=== PATIENT | male | born 1955 | race Caucasian/White ===

== ENCOUNTER 2018-11-16 08:29 | Inpatient (IN) ==
[2018-11-16] MEDS ORDERED: GLUCAGON 1 MG VIAL IM PRN (08:33)
[2018-11-16] MEDS ORDERED: DEXTROSE 50% 25 GM/50 ML VIAL IV PRN (08:33)
[2018-11-16] MEDS ORDERED: SODIUM CHLORIDE 0.9% 1,000 ML IV SCH (09:00)
[2018-11-16 14:36] LABS: ABG Base Excess 2.9 MMOL/L (-2.5-2.5); ABG HCO3 25.3 MMOL/L (20-26); ABG Oxygen Saturation 92.9 % (95-100); ABG PCO2 32.5 MM HG (35-48); ABG PH 7.509 (7.35-7.45); ABG TCO2 26.3 MMOL/L (23-27); Allen Test Positive
[2018-11-16 15:49] LABS: Basophils # 0.1 10*3/uL (0.0-0.2); Basophils % 0.7 % (0.0-0.8); Eosinophils # 0.1 10*3/uL (0.0-0.87); Eosinophils % 1.1 % (0.00-10.9); Hematocrit 45.4 VOL% (42.0-52.0); Hemoglobin 14.7 GM/DL (14.0-18.0); Immature Granulocytes % 0.6 %; Immature Granulocytes Absolute 0.07 #; Lymphocytes # 2.3 10*3/uL (1.4-4.0); Lymphocytes % 19.2 % (21.2-54.2); Mean Corpuscular HGB Conc 32.4 GM/DL (32-36); Mean Corpuscular Volume 92.5 FL (87-102); Mean Platelet Volume 12.9 FL (9.6-12.0); Neutrophils % 69.4 % (38.7-73.9); Platelet Count 177 T/CUMM (130-400); Red Blood Count 4.91 MC/CUMM (3.8-5.5); Red Cell Distribution Width 15.5 % (9.3-17.3); White Blood Count 12.1 T/CUMM (4-12)
[2018-11-16] MEDS ORDERED: NITROGLYCERIN DRIP 50 MG/250 ML BOTTLE IV PRN (15:54)
[2018-11-16] MEDS: ASPIRIN CHEW 81 MG TABLET PO SCH (15:57)
[2018-11-16] MEDS ORDERED: HEPARIN DRIP 25,000 UNITS/500 ML PREMIX IV SCH (16:00)
[2018-11-16 16:10] LABS: Albumin 3.1 G/DL (3.4-5.0); Bilirubin,Total 0.9 MG/DL (0.2-1.0); Calcium 8.9 MG/DL (8.5-10.1); Osmolality,Calculated 277.4 MOS/KG (273-304); Total Protein 6.2 G/DL (6.4-8.3)
[2018-11-16] MEDS: SILDENAFIL 20 MG TABLET PO SCH ×2 (16:11→21:28)
[2018-11-16] MEDS: clonazePAM 0.5 MG TABLET PO SCH ×2 (16:11→21:28)
[2018-11-16] MEDS: ATORVASTATIN 20 MG TABLET PO SCH (16:11)
[2018-11-16] MEDS: CHLORHEXIDINE 0.12% ORAL RINSE 60 ML BOTTLE SWISH/SPIT SCH ×2 (16:12→21:29)
[2018-11-16] MEDS: CHLORHEXIDINE 4% SOLN 118 ML BOTTLE TOP SCH ×2 (19:12→21:30)
[2018-11-16] MEDS ORDERED: VERAPAMIL SR 240 MG TABLET PO SCH (21:00)
[2018-11-17] MEDS: CHLORHEXIDINE 4% SOLN 118 ML BOTTLE TOP SCH ×2 (04:30→11:58)
[2018-11-17] MEDS: CHLORHEXIDINE 0.12% ORAL RINSE 60 ML BOTTLE SWISH/SPIT SCH ×3 (04:58→20:34)
[2018-11-17] MEDS ORDERED: PAPAVERINE 60 MG/2 ML VIAL ONE (05:09)
[2018-11-17] MEDS ORDERED: VANCOMYCIN 1,000 MG VIAL ONE (05:10)
[2018-11-17] MEDS ORDERED: CEFUROXIME INJ 1,500 MG in SYRINGE 1 EACH IV ONE (06:00)
[2018-11-17] MEDS ORDERED: HEPARIN/NACL 0.9% 2 UNITS/ML 500 ML IV ONE ×2 (06:20→11:20)
[2018-11-17] MEDS ORDERED: PHENYLEPHRINE DRIP 20 MG/250 ML PREMIX IV ONE (06:20)
[2018-11-17] MEDS ORDERED: MIDAZOLAM 10 MG/2 ML VIAL ONE (06:20)
[2018-11-17] MEDS ORDERED: SUFentanil 250 MCG/5 ML AMP ONE (06:20)
[2018-11-17] MEDS ORDERED: AMINOCAPROIC ACID 5,000 MG/20 ML VIAL ONE (06:21)
[2018-11-17] MEDS ORDERED: NITROGLYCERIN DRIP 50 MG/250 ML BOTTLE IV ONE (06:21)
[2018-11-17] MEDS ORDERED: LEVOTHYROXINE 112 MCG TABLET PO SCH (06:30)
[2018-11-17 07:44] LABS: ABG Base Excess 1.4 MMOL/L (-2.5-2.5); ABG HCO3 25.7 MMOL/L (20-26); ABG Oxygen Saturation 99.1 % (95-100); ABG PH 7.412 (7.35-7.45); ABG TCO2 22.6 MMOL/L (23-27); Glucose Heart Surgery 120 MG/DL (74-106); Hematocrit Heart Surgery 42.4 PERCENT (42-52); Hemoglobin Heart Surgery 13.8 G/DL (14.0-18.0); Ionized Calcium Arterial 1.27 MMOL/L (1.21-1.46); PH Patient Temp Arterial 7.412; Patient Temperature 37 CELCIUS; Potassium Heart/CVR 2.7 MMOL/L (3.5-5.1); Sodium Heart/CVR 139 MMOL/L (135-145)
[2018-11-17 08:31] LABS: Apearance,Urine CLEAR (Clear); Bilirubin,Urine Negative (Negative); Blood, Urine Negative (Negative); Glucose,Urine (UA) Negative (Negative); Ketones,Urine Negative (Negative); Nitrite,Urine Negative (Negative); Protein,Urine Negative; RBC,Urine 2 /HPF (0-4); Urine Color Yellow (Yellow); Urine Specific Gravity 1.015 (1.001-1.035); Urine Urobilinogen < 2.0 EU/DL (0.2-1.0); WBC,Urine 2 /HPF (0-6)
[2018-11-17] MEDS ORDERED: PHENYLEPHRINE DRIP 40 MG/250 ML PREMIX IV ONE (09:18)
[2018-11-17 09:21] LABS: Hematocrit Heart Surgery 30.8 PERCENT (42-52); PCO2 Patient Temp Venous 35.7 MM HG; PH Patient Temp Venous 7.45; Potassium Heart/CVR 3.1 MMOL/L (3.5-5.1); VBG Base Excess 1.1 MEQ/L (0-4); VBG HCO3 25.2 MEQ/L (24-28); VBG PCO2 41.2 MMHG (41-51); VBG PH 7.406; VBG PO2 49.1 MMHG (17-40)
[2018-11-17 09:49] LABS: Hematocrit Heart Surgery 32.1 PERCENT (42-52); Hemoglobin Heart Surgery 10.4 G/DL (14.0-18.0); PCO2 Patient Temp Venous 32.7 MM HG; PH Patient Temp Venous 7.479; PO2 Patient Temp Venous 40.2 MM HG; VBG Base Excess 1.3 MEQ/L (0-4); VBG HCO3 25.3 MEQ/L (24-28); VBG Oxygen Saturation 83.3 %; VBG PCO2 37.8 MMHG (41-51); VBG PH 7.435; VBG PO2 49.4 MMHG (17-40)
[2018-11-17 10:32] LABS: ABG Base Excess 0.4 MMOL/L (-2.5-2.5); ABG HCO3 24.8 MMOL/L (20-26); ABG Oxygen Saturation 99.6 % (95-100); ABG PCO2 35.7 MM HG (35-48); ABG PH 7.439 (7.35-7.45); ABG TCO2 21.9 MMOL/L (23-27); Glucose Heart Surgery 188 MG/DL (74-106); Hematocrit Heart Surgery 31.8 PERCENT (42-52); Hemoglobin Heart Surgery 10.3 G/DL (14.0-18.0); Ionized Calcium Arterial 1.28 MMOL/L (1.21-1.46); PCO2 Patient Temp Arterial 35.7 MMHG; PH Patient Temp Arterial 7.439; Patient Temperature 37 CELCIUS; Potassium Heart/CVR 3.2 MMOL/L (3.5-5.1); Sodium Heart/CVR 134 MMOL/L (135-145)
[2018-11-17] MEDS ORDERED: MANNITOL 100 GM/500 ML BAG IV ONE (10:35)
[2018-11-17] MEDS ORDERED: FUROSEMIDE 20 MG/2 ML VIAL ONE (10:36)
[2018-11-17] MEDS ORDERED: methylPREDNISolone SOD SUC 1,000 MG/8 ML VIAL ONE (10:36)
[2018-11-17] MEDS ORDERED: ALBUMIN 25% 25 GM/100 ML VIAL IV ONE (10:36)
[2018-11-17] MEDS ORDERED: SODIUM BICARBONATE 50 MEQ/50 ML VIAL IV ONE (10:36)
[2018-11-17] MEDS ORDERED: PROTAMINE SULFATE 250 MG/25 ML VIAL IV ONE (10:36)
[2018-11-17] MEDS ORDERED: DEXTROSE 5% KCL 20 MEQ 20 MEQ/1,000 ML BAG IV ONE (10:36)
[2018-11-17] MEDS ORDERED: HEPARIN 10,000 UNIT/10 ML VIAL ONE (10:36)
[2018-11-17] MEDS ORDERED: PROTAMINE SULFATE 50 MG/5 ML VIAL IV ONE (10:36)
[2018-11-17] MEDS ORDERED: MAGNESIUM SULFATE 5 GM/10 ML VIAL IV ONE (10:36)
[2018-11-17] MEDS ORDERED: POTASSIUM CHLORIDE 20 MEQ/10 ML VIAL ONE (10:37)
[2018-11-17] MEDS: SODIUM CHLORIDE 0.45% 1,000 ML IV SCH (11:20)
[2018-11-17] MEDS: LACTATED RINGERS 1,000 ML IV PRN ×2 (11:25→12:30)
[2018-11-17] MEDS ORDERED: MIDAZOLAM 2 MG/2 ML VIAL IV PRN (11:43)
[2018-11-17] MEDS ORDERED: NITROPRUSSIDE 100 MG in DEXTROSE 5% 250 ML IV PRN (11:43)
[2018-11-17] MEDS ORDERED: ACETAMINOPHEN 650 MG SUPP RECTAL PRN (11:43)
[2018-11-17] MEDS ORDERED: MAGNESIUM SULF RIDER 4 GM in PREMIX 1 EACH IV PRN (11:43)
[2018-11-17] MEDS ORDERED: CALCIUM CHLORIDE 1,000 MG/10 ML SYRINGE IV PRN (11:43)
[2018-11-17] MEDS ORDERED: INSULIN REGULAR 100 UNIT/ML IV PRN (11:43)
[2018-11-17] MEDS ORDERED: MAGNESIUM SULF RIDER 2 GM in PREMIX 1 EACH IV PRN (11:43)
[2018-11-17] MEDS ORDERED: VECURONIUM 10 MG VIAL IV PRN ×2 (11:43)
[2018-11-17] MEDS ORDERED: MIDAZOLAM 10 MG/2 ML VIAL IV PRN (11:43)
[2018-11-17] MEDS ORDERED: ONDANSETRON 4 MG/2 ML VIAL IV PRN (11:43)
[2018-11-17] MEDS ORDERED: INSULIN REGULAR 100 UNIT/ML IV ONE (11:43)
[2018-11-17] MEDS ORDERED: LACTATED RINGERS 250 ML IV PRN (11:43)
[2018-11-17] MEDS ORDERED: DEXTROSE 50% 25 GM/50 ML VIAL IV PRN ×2 (11:43)
[2018-11-17] MEDS ORDERED: ETOMIDATE 40 MG/20 ML VIAL IV ONE (11:45)
[2018-11-17] MEDS ORDERED: ePHEDrine 50 MG/ML AMP ONE (11:45)
[2018-11-17] MEDS ORDERED: SEVOFLURANE 1 UNIT/15 MINUTE INH ONE (11:45)
[2018-11-17] MEDS ORDERED: MINERAL OIL/PETROLATUM OPH OINT 3.5 GM TUBE ONE (11:45)
[2018-11-17] MEDS ORDERED: GLYCOPYRROLATE 0.4 MG/2 ML VIAL ONE (11:45)
[2018-11-17] MEDS ORDERED: SODIUM CHLORIDE 0.9% 250 ML IV ONE (11:46)
[2018-11-17] MEDS ORDERED: PHENYLEPHRINE 1 MG/10 ML SYRINGE IV ONE (11:46)
[2018-11-17] MEDS ORDERED: ROCURONIUM 100 MG/10 ML VIAL IV ONE (11:46)
[2018-11-17] MEDS ORDERED: SODIUM CHLORIDE 0.9% 1,000 ML IV ONE (11:46)
[2018-11-17] MEDS ORDERED: CALCIUM CHLORIDE 1,000 MG/10 ML VIAL IV ONE (11:46)
[2018-11-17 11:57] LABS: ABG Base Excess 0.7 MMOL/L (-2.5-2.5); ABG Oxygen Saturation 95.9 % (95-100); ABG PCO2 42.9 MM HG (35-48); ABG PH 7.388 (7.35-7.45); ABG TCO2 23.3 MMOL/L (23-27); Glucose Heart Surgery 152 MG/DL (74-106); Hematocrit Heart Surgery 34.1 PERCENT (42-52); Hemoglobin Heart Surgery 11.1 G/DL (14.0-18.0); Potassium Heart/CVR 3.2 MMOL/L (3.5-5.1)
[2018-11-17 11:58] LABS: Basophils % 0.3 % (0.0-0.8); Eosinophils # 0.1 10*3/uL (0.0-0.87); Eosinophils % 0.8 % (0.00-10.9); Hematocrit 32.4 VOL% (42.0-52.0); Hemoglobin 10.6 GM/DL (14.0-18.0); Immature Granulocytes Absolute 0.12 #; Lymphocytes # 1.1 10*3/uL (1.4-4.0); Lymphocytes % 8.6 % (21.2-54.2); Mean Corpuscular HGB Conc 32.7 GM/DL (32-36); Mean Corpuscular Volume 93.1 FL (87-102); Mean Platelet Volume 11.4 FL (9.6-12.0); Monocytes % 4.8 % (1.7-12.7); Neutrophils % 84.5 % (38.7-73.9); Platelet Count 161 T/CUMM (130-400); Red Blood Count 3.48 MC/CUMM (3.8-5.5); Red Cell Distribution Width 15.3 % (9.3-17.3); White Blood Count 12.3 T/CUMM (4-12)
[2018-11-17] MEDS ORDERED: SODIUM CHLORIDE 0.45% 1,000 ML IV SCH (12:00)
[2018-11-17] MEDS: POTASSIUM CHLORIDE RIDER 20 MEQ in PREMIX 1 EACH IV PRN ×3 (12:06→14:18)
[2018-11-17 12:09] LABS: INR 1.1; PT Patient Result 11.7 SECS; Partial Thromboplastin Time 27.3 SECS (0-40)
[2018-11-17 12:21] LABS: CKMB % 4.2 %
[2018-11-17 12:25] LABS: Albumin 3.1 G/DL (3.4-5.0); Bilirubin,Total 1.4 MG/DL (0.2-1.0); Calcium 9.8 MG/DL (8.5-10.1); Osmolality,Calculated 283.3 MOS/KG (273-304); Total Protein 5.6 G/DL (6.4-8.3)
[2018-11-17 12:27] LABS: Troponin I 7.76 NG/ML (0.00-0.045)
[2018-11-17] MEDS ORDERED: PROPOFOL 1,000 MG/100 ML BOTTLE IV SCH (13:00)
[2018-11-17] MEDS: INSULIN REGULAR DRIP 100 ML IV SCH (13:19)
[2018-11-17] MEDS: DEXMEDETOMIDINE 200 MCG in SODIUM CHLORIDE 0.9% 48 ML IV PRN ×2 (13:22→19:07)
[2018-11-17] MEDS: SILDENAFIL 20 MG TABLET PO SCH (13:34)
[2018-11-17] MEDS: ASPIRIN CHEW 81 MG TABLET PO SCH (13:35)
[2018-11-17] MEDS: clonazePAM 0.5 MG TABLET PO SCH (13:35)
[2018-11-17] MEDS: ATORVASTATIN 20 MG TABLET PO SCH (13:35)
[2018-11-17 14:04] LABS: ABG Base Excess 0.9 MMOL/L (-2.5-2.5); ABG HCO3 25.2 MMOL/L (20-26); ABG Oxygen Saturation 97.1 % (95-100); ABG PCO2 42.2 MM HG (35-48); ABG PH 7.396 (7.35-7.45); ABG PO2 96.5 MM HG (80-95); ABG TCO2 23.1 MMOL/L (23-27); Glucose Heart Surgery 138 MG/DL (74-106); Hematocrit Heart Surgery 35.8 PERCENT (42-52); Hemoglobin Heart Surgery 11.6 G/DL (14.0-18.0); Potassium Heart/CVR 3.7 MMOL/L (3.5-5.1)
[2018-11-17] MEDS: POTASSIUM CHLORIDE RIDER 10 MEQ in PREMIX 1 EACH IV PRN (15:04)
[2018-11-17] MEDS: PHENYLEPHRINE DRIP 40 MG/250 ML PREMIX IV PRN (16:51)
[2018-11-17 18:11] LABS: ABG Base Excess 0.6 MMOL/L (-2.5-2.5); ABG Oxygen Saturation 97.6 % (95-100); ABG PCO2 47.7 MM HG (35-48); ABG PH 7.356 (7.35-7.45); ABG TCO2 23.8 MMOL/L (23-27); Glucose Heart Surgery 161 MG/DL (74-106)
[2018-11-17] MEDS: MORPHINE 10 MG/1 ML VIAL IV PRN (18:53)
[2018-11-17] MEDS: PROPOFOL 1,000 MG/100 ML BOTTLE IV PRN (19:36)
[2018-11-17] MEDS: CEFUROXIME INJ 1,500 MG in SYRINGE 1 EACH IV SCH (19:47)
[2018-11-17 20:10] LABS: CKMB % 4.3 %
[2018-11-17 20:12] LABS: Troponin I 10.2 NG/ML (0.00-0.045)
[2018-11-17 21:07] LABS: ABG Base Excess 0.3 MMOL/L (-2.5-2.5); ABG HCO3 25.9 MMOL/L (20-26); ABG Oxygen Saturation 97.6 % (95-100); ABG PCO2 45.8 MM HG (35-48); ABG PH 7.371 (7.35-7.45); ABG PO2 118.8 MM HG (80-95); ABG TCO2 27.3 MMOL/L (23-27); Glucose Heart Surgery 156 MG/DL (74-106); Hemoglobin Heart Surgery 12.3 G/DL (14.0-18.0)
[2018-11-18] MEDS ORDERED: FUROSEMIDE 40 MG/4 ML VIAL IV ONE (00:13)
[2018-11-18] MEDS: MORPHINE 10 MG/1 ML VIAL IV PRN ×2 (00:34→04:28)
[2018-11-18] MEDS: PROPOFOL 1,000 MG/100 ML BOTTLE IV PRN (01:41)
[2018-11-18] MEDS: ALBUMIN 5% 12.5 GM in PREMIX 1 EACH IV PRN ×3 (02:10→09:35)
[2018-11-18 03:44] LABS: ABG Base Excess 1.2 MMOL/L (-2.5-2.5); ABG HCO3 25.4 MMOL/L (20-26); ABG Oxygen Saturation 97.5 % (95-100); ABG PCO2 47.5 MM HG (35-48); ABG PH 7.364 (7.35-7.45); ABG TCO2 24.3 MMOL/L (23-27); Glucose Heart Surgery 146 MG/DL (74-106); Hematocrit Heart Surgery 35.3 PERCENT (42-52); Hemoglobin Heart Surgery 11.5 G/DL (14.0-18.0); Potassium Heart/CVR 3.7 MMOL/L (3.5-5.1)
[2018-11-18 04:08] LABS: Basophils % 0.1 % (0.0-0.8); Hematocrit 33.7 VOL% (42.0-52.0); Hemoglobin 10.9 GM/DL (14.0-18.0); Immature Granulocytes % 0.5 %; Immature Granulocytes Absolute 0.09 #; Lymphocytes # 0.6 10*3/uL (1.4-4.0); Lymphocytes % 3.8 % (21.2-54.2); Mean Corpuscular HGB Conc 32.3 GM/DL (32-36); Mean Corpuscular Volume 94.7 FL (87-102); Mean Platelet Volume 12.3 FL (9.6-12.0); Neutrophils % 91.6 % (38.7-73.9); Platelet Count 189 T/CUMM (130-400); Red Blood Count 3.56 MC/CUMM (3.8-5.5); Red Cell Distribution Width 15.9 % (9.3-17.3); White Blood Count 16.9 T/CUMM (4-12)
[2018-11-18] MEDS: POTASSIUM CHLORIDE RIDER 20 MEQ in PREMIX 1 EACH IV PRN ×2 (04:10→06:42)
[2018-11-18 04:30] LABS: Albumin 3.1 G/DL (3.4-5.0); Bilirubin,Direct 0.17 MG/DL (0.0-0.20); Bilirubin,Total 0.5 MG/DL (0.2-1.0); CKMB % 4.3 %; Calcium 8.7 MG/DL (8.5-10.1)
[2018-11-18 04:34] LABS: Troponin I 7.02 NG/ML (0.00-0.045)
[2018-11-18] MEDS: POTASSIUM CHLORIDE RIDER 10 MEQ in PREMIX 1 EACH IV PRN (04:44)
[2018-11-18 05:06] LABS: ABG Base Excess -1.2 MMOL/L (-2.5-2.5); ABG HCO3 24.6 MMOL/L (20-26); ABG Oxygen Saturation 98.4 % (95-100); ABG PCO2 45.5 MM HG (35-48); ABG PH 7.351 (7.35-7.45); Glucose Heart Surgery 126 MG/DL (74-106); Hemoglobin Heart Surgery 11.7 G/DL (14.0-18.0); Potassium Heart/CVR 4.3 MMOL/L (3.5-5.1)
[2018-11-18 05:21] LABS: Band Neutrophils 10 % (0-10); Lymphocytes 2 % (20-55); Platelet Estimate Normal; Segmented Neutrophils 85 % (50-85); Total Cells Counted 100
[2018-11-18 05:59] LABS: ABG Base Excess -0.8 MMOL/L (-2.5-2.5); ABG HCO3 23.7 MMOL/L (20-26); ABG Oxygen Saturation 95.6 % (95-100); ABG PCO2 43.9 MM HG (35-48); ABG PH 7.359 (7.35-7.45); ABG TCO2 22.3 MMOL/L (23-27); Glucose Heart Surgery 135 MG/DL (74-106); Hematocrit Heart Surgery 34.9 PERCENT (42-52); Hemoglobin Heart Surgery 11.3 G/DL (14.0-18.0)
[2018-11-18] MEDS ORDERED: DEXTROSE 50% 25 GM/50 ML VIAL IV PRN (06:27)
[2018-11-18] MEDS ORDERED: GLUCAGON 1 MG VIAL IM PRN (06:27)
[2018-11-18] MEDS: MORPHINE 4 MG/1 ML VIAL IV PRN ×6 (06:43→22:25)
[2018-11-18] MEDS: CYANOCOBALAMIN 500 MCG TABLET PO SCH ×2 (06:50→08:30)
[2018-11-18] MEDS: LEVOTHYROXINE 112 MCG TABLET PO SCH (06:50)
[2018-11-18] MEDS: CEFUROXIME INJ 1,500 MG in SYRINGE 1 EACH IV SCH ×2 (08:14→21:53)
[2018-11-18] MEDS: VERAPAMIL SR 240 MG TABLET PO SCH (08:30)
[2018-11-18] MEDS: tiZANidine 4 MG TABLET PO SCH (08:30)
[2018-11-18] MEDS: FOLIC ACID 1 MG TABLET PO SCH (08:30)
[2018-11-18] MEDS: clonazePAM 0.5 MG TABLET PO SCH ×3 (08:30→21:53)
[2018-11-18] MEDS: PANTOPRAZOLE 40 MG TABLET PO SCH (08:30)
[2018-11-18] MEDS: CHLORHEXIDINE 0.12% ORAL RINSE 60 ML BOTTLE SWISH/SPIT SCH ×2 (08:30→21:53)
[2018-11-18] MEDS: ERGOCALCIFEROL 50,000 UNIT CAPSULE PO SCH (08:30)
[2018-11-18] MEDS: GABAPENTIN 300 MG CAPSULE PO SCH (08:30)
[2018-11-18] MEDS: ATORVASTATIN 20 MG TABLET PO SCH (08:30)
[2018-11-18] MEDS: CETIRIZINE 10 MG TABLET PO SCH (08:30)
[2018-11-18] MEDS: ASPIRIN CHEW 81 MG TABLET PO SCH (08:30)
[2018-11-18] MEDS: SILDENAFIL 20 MG TABLET PO SCH (08:30)
[2018-11-18] MEDS ORDERED: GLYCOPYRROLATE FORMOTEROL INH SCH (09:00)
[2018-11-18] MEDS ORDERED: BREXPIPRAZOLE 2 MG PO SCH (09:00)
[2018-11-18] MEDS ORDERED: BUPROPION HCL 300 MG PO SCH (09:00)
[2018-11-18] MEDS: ALBUTEROL 2.5 MG/3 ML NEB RESP TX SCH ×2 (09:30→18:55)
[2018-11-18] MEDS: LACTATED RINGERS 1,000 ML IV PRN (09:52)
[2018-11-18] MEDS: PHENYLEPHRINE DRIP 40 MG/250 ML PREMIX IV PRN (10:05)
[2018-11-18] MEDS: INSULIN REGULAR DRIP 100 ML IV SCH (12:20)
[2018-11-18] MEDS: SODIUM CHLORIDE 0.45% 1,000 ML IV SCH (12:20)
[2018-11-18 12:47] LABS: CKMB % 2.8 %
[2018-11-18 12:48] LABS: Troponin I 6.34 NG/ML (0.00-0.045)
[2018-11-18] MEDS: NICOTINE 14 MG/24 HR PATCH TRANSDERM SCH (13:30)
[2018-11-18] MEDS ORDERED: CEFUROXIME INJ 1,500 MG in SYRINGE 1 EACH IV SCH (22:00)
[2018-11-19] MEDS: HYDROmorphone 2 MG/1 ML VIAL IV PRN ×3 (00:24→18:28)
[2018-11-19] MEDS: SODIUM CHLORIDE 0.45% 1,000 ML IV SCH (00:30)
[2018-11-19] MEDS: clonazePAM 0.5 MG TABLET PO PRN ×3 (03:00→22:15)
[2018-11-19 05:09] LABS: Basophils % 0.1 % (0.0-0.8); Hematocrit 30.6 VOL% (42.0-52.0); Immature Granulocytes % 0.7 %; Immature Granulocytes Absolute 0.13 #; Lymphocytes # 0.6 10*3/uL (1.4-4.0); Lymphocytes % 3.3 % (21.2-54.2); Mean Corpuscular HGB Conc 32.7 GM/DL (32-36); Mean Corpuscular Volume 95.6 FL (87-102); Mean Platelet Volume 12.4 FL (9.6-12.0); Monocytes % 6.8 % (1.7-12.7); Neutrophils % 89.1 % (38.7-73.9); Platelet Count 186 T/CUMM (130-400); Red Cell Distribution Width 15.9 % (9.3-17.3); White Blood Count 17.8 T/CUMM (4-12)
[2018-11-19 05:43] LABS: Albumin 3.2 G/DL (3.4-5.0); Bilirubin,Direct 0.17 MG/DL (0.0-0.20); Bilirubin,Total 0.5 MG/DL (0.2-1.0); Calcium 8.2 MG/DL (8.5-10.1); Osmolality,Calculated 291.8 MOS/KG (273-304)
[2018-11-19 05:50] LABS: Hypochromasia 1+; Lymphocytes 2 % (20-55); Platelet Estimate Adequate; Segmented Neutrophils 93 % (50-85); Total Cells Counted 100
[2018-11-19] MEDS: ALBUTEROL 2.5 MG/3 ML NEB RESP TX SCH ×2 (06:48→18:41)
[2018-11-19] MEDS: POTASSIUM CHLORIDE RIDER 20 MEQ in PREMIX 1 EACH IV PRN (07:07)
[2018-11-19] MEDS: GABAPENTIN 300 MG CAPSULE PO SCH (08:48)
[2018-11-19] MEDS: ATORVASTATIN 20 MG TABLET PO SCH (08:49)
[2018-11-19] MEDS: LEVOTHYROXINE 112 MCG TABLET PO SCH (08:49)
[2018-11-19] MEDS: ERGOCALCIFEROL 50,000 UNIT CAPSULE PO SCH (08:49)
[2018-11-19] MEDS: PANTOPRAZOLE 40 MG TABLET PO SCH ×2 (08:49→10:23)
[2018-11-19] MEDS: SILDENAFIL 20 MG TABLET PO SCH (08:49)
[2018-11-19] MEDS: CYANOCOBALAMIN 500 MCG TABLET PO SCH (08:49)
[2018-11-19] MEDS: NICOTINE 14 MG/24 HR PATCH TRANSDERM SCH (08:49)
[2018-11-19] MEDS: ASPIRIN CHEW 81 MG TABLET PO SCH (08:49)
[2018-11-19] MEDS: FOLIC ACID 1 MG TABLET PO SCH (08:49)
[2018-11-19] MEDS: CETIRIZINE 10 MG TABLET PO SCH (08:49)
[2018-11-19] MEDS: tiZANidine 4 MG TABLET PO SCH (08:49)
[2018-11-19] MEDS: CHLORHEXIDINE 0.12% ORAL RINSE 60 ML BOTTLE SWISH/SPIT SCH ×3 (08:49→21:30)
[2018-11-19] MEDS: VERAPAMIL SR 240 MG TABLET PO SCH (08:50)
[2018-11-19] MEDS ORDERED: SODIUM CHLOR 0.45% KCL 20 MEQ 20 MEQ/1,000 ML BAG IV SCH (10:01)
[2018-11-19] MEDS ORDERED: ACETAMINOPHEN 325 MG TABLET PO PRN (10:01)
[2018-11-19] MEDS ORDERED: DEXTROSE 50% 25 GM/50 ML VIAL IV PRN ×2 (10:01)
[2018-11-19] MEDS ORDERED: MAGNESIUM SULF RIDER 4 GM in PREMIX 1 EACH IV PRN (10:01)
[2018-11-19] MEDS ORDERED: ZALEPLON 5 MG CAPSULE PO PRN (10:01)
[2018-11-19] MEDS ORDERED: ONDANSETRON 4 MG/2 ML VIAL IV PRN (10:01)
[2018-11-19] MEDS ORDERED: ALUMINUM/MAGNES/SIMETH MAX STR 30 ML UDCUP PO PRN (10:01)
[2018-11-19] MEDS ORDERED: GLUCAGON 1 MG VIAL IM PRN ×2 (10:01)
[2018-11-19] MEDS ORDERED: MAGNESIUM SULF RIDER 2 GM in PREMIX 1 EACH IV PRN (10:01)
[2018-11-19] MEDS: FERROUS SULFATE 325 MG TABLET PO SCH (10:35)
[2018-11-19] MEDS: DOCUSATE SODIUM 100 MG CAPSULE PO SCH (12:23)
[2018-11-19] MEDS: HALOPERIDOL 5 MG/ML AMP IV PRN (23:32)
[2018-11-20] MEDS: HYDROmorphone 2 MG/1 ML VIAL IV PRN ×2 (02:08→04:14)
[2018-11-20] MEDS: HALOPERIDOL 5 MG/ML AMP IV PRN (03:15)
[2018-11-20] MEDS ORDERED: CARVEDILOL 6.25 MG TABLET PO ONE (04:29)
[2018-11-20 05:44] LABS: Basophils % 0.2 % (0.0-0.8); Hematocrit 34.6 VOL% (42.0-52.0); Hemoglobin 10.9 GM/DL (14.0-18.0); Immature Granulocytes % 1.2 %; Immature Granulocytes Absolute 0.19 #; Lymphocytes # 0.6 10*3/uL (1.4-4.0); Mean Corpuscular HGB Conc 31.5 GM/DL (32-36); Mean Corpuscular Volume 96.4 FL (87-102); Mean Platelet Volume 12.2 FL (9.6-12.0); Monocytes % 9.1 % (1.7-12.7); NRBC # 0.02 10*3/uL; Neutrophils % 85.5 % (38.7-73.9); Platelet Count 199 T/CUMM (130-400); Red Blood Count 3.59 MC/CUMM (3.8-5.5); Red Cell Distribution Width 15.9 % (9.3-17.3)
[2018-11-20] MEDS ORDERED: FUROSEMIDE 40 MG/4 ML VIAL IV ONE (06:00)
[2018-11-20 06:05] LABS: Alanine Aminotransferase 17 U/L (16-61); Albumin 3.4 G/DL (3.4-5.0); Alkaline Phosphatase 59 U/L (45-117); Aspartate Amino Transferase 19 U/L (0-37); Bilirubin,Indirect 0.6 MG/DL (0.0-1.0); Blood Urea Nitrogen 25 MG/DL (7-18); Calcium 9.1 MG/DL (8.5-10.1); Glucose 131 MG/DL (74-106); Osmolality,Calculated 293.7 MOS/KG (273-304); Total Protein 6.5 G/DL (6.4-8.3)
[2018-11-20 06:14] LABS: Band Neutrophils 1 % (0-10); Lymphocytes 7 % (20-55); Platelet Estimate Normal; Segmented Neutrophils 84 % (50-85); Total Cells Counted 100
[2018-11-20] MEDS: LEVOTHYROXINE 112 MCG TABLET PO SCH (06:31)
[2018-11-20] MEDS: POTASSIUM CHLORIDE 20 MEQ TABLET PO PRN ×3 (06:48→11:53)
[2018-11-20] MEDS: ALBUTEROL 2.5 MG/3 ML NEB RESP TX SCH ×2 (07:02→19:33)
[2018-11-20] MEDS: FOLIC ACID 1 MG TABLET PO SCH (09:20)
[2018-11-20] MEDS: NICOTINE 14 MG/24 HR PATCH TRANSDERM SCH (09:20)
[2018-11-20] MEDS: GABAPENTIN 300 MG CAPSULE PO SCH (09:20)
[2018-11-20] MEDS: VERAPAMIL SR 240 MG TABLET PO SCH (09:20)
[2018-11-20] MEDS: ATORVASTATIN 20 MG TABLET PO SCH (09:20)
[2018-11-20] MEDS: oxyCODONE/ACETAMINOPHEN 5-325 MG TABLET PO PRN ×2 (09:21→17:49)
[2018-11-20] MEDS: ASPIRIN CHEW 81 MG TABLET PO SCH (09:21)
[2018-11-20] MEDS: PANTOPRAZOLE 40 MG TABLET PO SCH (09:21)
[2018-11-20] MEDS: SILDENAFIL 20 MG TABLET PO SCH (09:21)
[2018-11-20] MEDS: DOCUSATE SODIUM 100 MG CAPSULE PO SCH (09:21)
[2018-11-20] MEDS: ERGOCALCIFEROL 50,000 UNIT CAPSULE PO SCH (09:21)
[2018-11-20] MEDS: FERROUS SULFATE 325 MG TABLET PO SCH (09:22)
[2018-11-20] MEDS: CARVEDILOL 6.25 MG TABLET PO SCH ×2 (09:22→17:41)
[2018-11-20] MEDS: CYANOCOBALAMIN 500 MCG TABLET PO SCH (09:22)
[2018-11-20] MEDS: CETIRIZINE 10 MG TABLET PO SCH (09:22)
[2018-11-20] MEDS: tiZANidine 4 MG TABLET PO SCH (09:22)
[2018-11-20] MEDS: CHLORHEXIDINE 0.12% ORAL RINSE 60 ML BOTTLE SWISH/SPIT SCH ×2 (09:23→20:57)
[2018-11-20] MEDS: clonazePAM 0.5 MG TABLET PO PRN (09:23)
[2018-11-20] MEDS ORDERED: NITROPRUSSIDE 50 MG/2 ML VIAL ONE ×2 (10:54→10:59)
[2018-11-20] MEDS ORDERED: NITROPRUSSIDE 100 MG in DEXTROSE 5% 246 ML IV PRN (10:54)
[2018-11-20] MEDS: hydrALAZINE 20 MG/1 ML VIAL IV SCH ×3 (11:49→17:41)
[2018-11-20] MEDS: AMIODARONE 200 MG TABLET PO SCH ×2 (15:47→20:54)
[2018-11-21] MEDS: hydrALAZINE 20 MG/1 ML VIAL IV SCH ×4 (00:39→17:49)
[2018-11-21 05:46] LABS: Basophils % 0.2 % (0.0-0.8); Eosinophils % 0.1 % (0.00-10.9); Hematocrit 36.8 VOL% (42.0-52.0); Hemoglobin 11.9 GM/DL (14.0-18.0); Immature Granulocytes % 1.1 %; Immature Granulocytes Absolute 0.15 #; Lymphocytes # 0.9 10*3/uL (1.4-4.0); Lymphocytes % 7.1 % (21.2-54.2); Mean Corpuscular HGB Conc 32.3 GM/DL (32-36); Mean Corpuscular Volume 94.6 FL (87-102); Mean Platelet Volume 12.5 FL (9.6-12.0); Monocytes % 8.7 % (1.7-12.7); NRBC # 0.02 10*3/uL; Neutrophils % 82.8 % (38.7-73.9); Platelet Count 216 T/CUMM (130-400); Red Blood Count 3.89 MC/CUMM (3.8-5.5); Red Cell Distribution Width 15.7 % (9.3-17.3); White Blood Count 13.1 T/CUMM (4-12)
[2018-11-21] MEDS: LEVOTHYROXINE 112 MCG TABLET PO SCH (06:01)
[2018-11-21 06:24] LABS: Alanine Aminotransferase 16 U/L (16-61); Albumin 3.2 G/DL (3.4-5.0); Alkaline Phosphatase 58 U/L (45-117); Aspartate Amino Transferase 12 U/L (0-37); Bilirubin,Indirect 0.5 MG/DL (0.0-1.0); Blood Urea Nitrogen 26 MG/DL (7-18); Calcium 8.9 MG/DL (8.5-10.1); Glucose 118 MG/DL (74-106); Osmolality,Calculated 288.1 MOS/KG (273-304); Total Protein 6.2 G/DL (6.4-8.3)
[2018-11-21] MEDS: ALBUTEROL 2.5 MG/3 ML NEB RESP TX SCH ×2 (07:27→19:01)
[2018-11-21] MEDS: NICOTINE 14 MG/24 HR PATCH TRANSDERM SCH (09:51)
[2018-11-21] MEDS: CYANOCOBALAMIN 500 MCG TABLET PO SCH (09:55)
[2018-11-21] MEDS: SILDENAFIL 20 MG TABLET PO SCH (09:56)
[2018-11-21] MEDS: tiZANidine 4 MG TABLET PO SCH (09:56)
[2018-11-21] MEDS: POTASSIUM CHLORIDE 20 MEQ TABLET PO PRN ×2 (09:56→11:36)
[2018-11-21] MEDS: ATORVASTATIN 20 MG TABLET PO SCH (09:56)
[2018-11-21] MEDS: AMIODARONE 200 MG TABLET PO SCH ×2 (09:56→21:49)
[2018-11-21] MEDS: DOCUSATE SODIUM 100 MG CAPSULE PO SCH (09:57)
[2018-11-21] MEDS: PANTOPRAZOLE 40 MG TABLET PO SCH (09:57)
[2018-11-21] MEDS: FOLIC ACID 1 MG TABLET PO SCH (09:57)
[2018-11-21] MEDS: VERAPAMIL SR 240 MG TABLET PO SCH (09:57)
[2018-11-21] MEDS: GABAPENTIN 300 MG CAPSULE PO SCH (09:57)
[2018-11-21] MEDS: CETIRIZINE 10 MG TABLET PO SCH (09:57)
[2018-11-21] MEDS: CARVEDILOL 6.25 MG TABLET PO SCH ×2 (09:57→17:49)
[2018-11-21] MEDS: FERROUS SULFATE 325 MG TABLET PO SCH (09:58)
[2018-11-21] MEDS: ASPIRIN CHEW 81 MG TABLET PO SCH (09:58)
[2018-11-21] MEDS: CHLORHEXIDINE 0.12% ORAL RINSE 60 ML BOTTLE SWISH/SPIT SCH ×2 (10:02→21:48)
[2018-11-21] MEDS: ERGOCALCIFEROL 50,000 UNIT CAPSULE PO SCH (10:02)
[2018-11-22] MEDS: hydrALAZINE 20 MG/1 ML VIAL IV SCH ×4 (00:25→17:07)
[2018-11-22] MEDS: oxyCODONE/ACETAMINOPHEN 5-325 MG TABLET PO PRN ×2 (05:33→21:10)
[2018-11-22] MEDS: LEVOTHYROXINE 112 MCG TABLET PO SCH (06:08)
[2018-11-22] MEDS: ALBUTEROL 2.5 MG/3 ML NEB RESP TX SCH ×2 (07:05→19:32)
[2018-11-22] MEDS: VERAPAMIL SR 240 MG TABLET PO SCH (09:12)
[2018-11-22] MEDS: CARVEDILOL 6.25 MG TABLET PO SCH ×2 (09:12→16:59)
[2018-11-22] MEDS: ASPIRIN CHEW 81 MG TABLET PO SCH (09:13)
[2018-11-22] MEDS: FOLIC ACID 1 MG TABLET PO SCH (09:13)
[2018-11-22] MEDS: GABAPENTIN 300 MG CAPSULE PO SCH (09:13)
[2018-11-22] MEDS: ERGOCALCIFEROL 50,000 UNIT CAPSULE PO SCH (09:13)
[2018-11-22] MEDS: AMIODARONE 200 MG TABLET PO SCH ×2 (09:13→21:11)
[2018-11-22] MEDS: FERROUS SULFATE 325 MG TABLET PO SCH (09:13)
[2018-11-22] MEDS: DOCUSATE SODIUM 100 MG CAPSULE PO SCH (09:13)
[2018-11-22] MEDS: SILDENAFIL 20 MG TABLET PO SCH (09:13)
[2018-11-22] MEDS: PANTOPRAZOLE 40 MG TABLET PO SCH (09:13)
[2018-11-22] MEDS: CETIRIZINE 10 MG TABLET PO SCH (09:13)
[2018-11-22] MEDS: CYANOCOBALAMIN 500 MCG TABLET PO SCH (09:13)
[2018-11-22] MEDS: ATORVASTATIN 20 MG TABLET PO SCH (09:13)
[2018-11-22] MEDS: tiZANidine 4 MG TABLET PO SCH (09:13)
[2018-11-22] MEDS: NICOTINE 14 MG/24 HR PATCH TRANSDERM SCH (09:18)
[2018-11-22] MEDS: CHLORHEXIDINE 0.12% ORAL RINSE 60 ML BOTTLE SWISH/SPIT SCH ×2 (09:18→21:12)
[2018-11-23] MEDS: hydrALAZINE 20 MG/1 ML VIAL IV SCH ×4 (00:30→17:10)
[2018-11-23 05:07] LABS: Basophils % 0.2 % (0.0-0.8); Eosinophils # 0.1 10*3/uL (0.0-0.87); Eosinophils % 0.4 % (0.00-10.9); Hematocrit 40.7 VOL% (42.0-52.0); Hemoglobin 12.8 GM/DL (14.0-18.0); Immature Granulocytes Absolute 0.12 #; Lymphocytes # 1.7 10*3/uL (1.4-4.0); Lymphocytes % 13.8 % (21.2-54.2); Mean Corpuscular HGB Conc 31.4 GM/DL (32-36); Mean Corpuscular Volume 95.3 FL (87-102); Mean Platelet Volume 12.2 FL (9.6-12.0); Neutrophils % 74.6 % (38.7-73.9); Platelet Count 260 T/CUMM (130-400); Red Blood Count 4.27 MC/CUMM (3.8-5.5); Red Cell Distribution Width 15.9 % (9.3-17.3); White Blood Count 12.4 T/CUMM (4-12)
[2018-11-23 05:43] LABS: Alanine Aminotransferase 19 U/L (16-61); Albumin 3.2 G/DL (3.4-5.0); Alkaline Phosphatase 58 U/L (45-117); Aspartate Amino Transferase 10 U/L (0-37); Bilirubin,Indirect 0.6 MG/DL (0.0-1.0); Blood Urea Nitrogen 28 MG/DL (7-18); Calcium 8.9 MG/DL (8.5-10.1); Glucose 103 MG/DL (74-106); Osmolality,Calculated 288.1 MOS/KG (273-304); Total Protein 6.4 G/DL (6.4-8.3)
[2018-11-23 05:45] LABS: Troponin I 0.969 NG/ML (0.00-0.045)
[2018-11-23] MEDS: LEVOTHYROXINE 112 MCG TABLET PO SCH (06:08)
[2018-11-23] MEDS: POTASSIUM CHLORIDE 20 MEQ TABLET PO PRN ×3 (06:09→16:10)
[2018-11-23] MEDS: MAGNESIUM HYDROXIDE SUSP 30 ML UDCUP PO PRN (06:11)
[2018-11-23] MEDS: ALBUTEROL 2.5 MG/3 ML NEB RESP TX SCH ×2 (07:09→19:35)
[2018-11-23] MEDS: CARVEDILOL 6.25 MG TABLET PO SCH ×2 (09:18→16:10)
[2018-11-23] MEDS: PANTOPRAZOLE 40 MG TABLET PO SCH (09:18)
[2018-11-23] MEDS: FERROUS SULFATE 325 MG TABLET PO SCH (09:18)
[2018-11-23] MEDS: ERGOCALCIFEROL 50,000 UNIT CAPSULE PO SCH (09:18)
[2018-11-23] MEDS: SILDENAFIL 20 MG TABLET PO SCH (09:19)
[2018-11-23] MEDS: NICOTINE 14 MG/24 HR PATCH TRANSDERM SCH (09:19)
[2018-11-23] MEDS: ASPIRIN CHEW 81 MG TABLET PO SCH (09:19)
[2018-11-23] MEDS: AMIODARONE 200 MG TABLET PO SCH ×2 (09:19→21:53)
[2018-11-23] MEDS: CETIRIZINE 10 MG TABLET PO SCH (09:19)
[2018-11-23] MEDS: ATORVASTATIN 20 MG TABLET PO SCH (09:19)
[2018-11-23] MEDS: CYANOCOBALAMIN 500 MCG TABLET PO SCH (09:19)
[2018-11-23] MEDS: VERAPAMIL SR 240 MG TABLET PO SCH (09:19)
[2018-11-23] MEDS: GABAPENTIN 300 MG CAPSULE PO SCH (09:19)
[2018-11-23] MEDS: tiZANidine 4 MG TABLET PO SCH (09:19)
[2018-11-23] MEDS: DOCUSATE SODIUM 100 MG CAPSULE PO SCH (09:19)
[2018-11-23] MEDS: FOLIC ACID 1 MG TABLET PO SCH (09:19)
[2018-11-23] MEDS: oxyCODONE/ACETAMINOPHEN 5-325 MG TABLET PO PRN ×2 (09:23→21:53)
[2018-11-23] MEDS: CHLORHEXIDINE 0.12% ORAL RINSE 60 ML BOTTLE SWISH/SPIT SCH ×2 (09:26→21:53)
[2018-11-24] MEDS: oxyCODONE/ACETAMINOPHEN 5-325 MG TABLET PO PRN ×2 (01:35→20:51)
[2018-11-24] MEDS: hydrALAZINE 20 MG/1 ML VIAL IV SCH ×4 (01:36→17:04)
[2018-11-24] MEDS: clonazePAM 0.5 MG TABLET PO PRN ×2 (03:00→20:50)
[2018-11-24 05:35] LABS: Basophils % 0.2 % (0.0-0.8); Eosinophils # 0.2 10*3/uL (0.0-0.87); Eosinophils % 1.4 % (0.00-10.9); Hematocrit 36.9 VOL% (42.0-52.0); Hemoglobin 11.8 GM/DL (14.0-18.0); Immature Granulocytes Absolute 0.12 #; Lymphocytes # 1.8 10*3/uL (1.4-4.0); Lymphocytes % 15.5 % (21.2-54.2); Mean Corpuscular Volume 94.9 FL (87-102); Mean Platelet Volume 12.1 FL (9.6-12.0); Monocytes % 10.2 % (1.7-12.7); Neutrophils % 71.7 % (38.7-73.9); Platelet Count 235 T/CUMM (130-400); Red Blood Count 3.89 MC/CUMM (3.8-5.5); Red Cell Distribution Width 15.8 % (9.3-17.3); White Blood Count 11.7 T/CUMM (4-12)
[2018-11-24 05:57] LABS: Alanine Aminotransferase 17 U/L (16-61); Alkaline Phosphatase 52 U/L (45-117); Aspartate Amino Transferase 8 U/L (0-37); Bilirubin,Indirect 0.3 MG/DL (0.0-1.0); Blood Urea Nitrogen 27 MG/DL (7-18); Calcium 8.4 MG/DL (8.5-10.1); Glucose 99 MG/DL (74-106); Osmolality,Calculated 285.3 MOS/KG (273-304); Total Protein 5.7 G/DL (6.4-8.3)
[2018-11-24 06:00] LABS: Troponin I 0.505 NG/ML (0.00-0.045)
[2018-11-24] MEDS: LEVOTHYROXINE 112 MCG TABLET PO SCH (06:54)
[2018-11-24] MEDS: ALBUTEROL 2.5 MG/3 ML NEB RESP TX SCH ×2 (06:55→19:40)
[2018-11-24] MEDS: MAGNESIUM HYDROXIDE SUSP 30 ML UDCUP PO PRN (06:55)
[2018-11-24] MEDS: POTASSIUM CHLORIDE 20 MEQ TABLET PO PRN (06:55)
[2018-11-24] MEDS: ERGOCALCIFEROL 50,000 UNIT CAPSULE PO SCH (09:14)
[2018-11-24] MEDS: ATORVASTATIN 20 MG TABLET PO SCH (09:14)
[2018-11-24] MEDS: FERROUS SULFATE 325 MG TABLET PO SCH (09:14)
[2018-11-24] MEDS: VERAPAMIL SR 240 MG TABLET PO SCH (09:14)
[2018-11-24] MEDS: CARVEDILOL 6.25 MG TABLET PO SCH ×2 (09:14→17:03)
[2018-11-24] MEDS: FOLIC ACID 1 MG TABLET PO SCH (09:14)
[2018-11-24] MEDS: GABAPENTIN 300 MG CAPSULE PO SCH (09:14)
[2018-11-24] MEDS: AMIODARONE 200 MG TABLET PO SCH ×2 (09:14→20:49)
[2018-11-24] MEDS: ASPIRIN CHEW 81 MG TABLET PO SCH (09:14)
[2018-11-24] MEDS: DOCUSATE SODIUM 100 MG CAPSULE PO SCH (09:14)
[2018-11-24] MEDS: CETIRIZINE 10 MG TABLET PO SCH (09:15)
[2018-11-24] MEDS: NICOTINE 14 MG/24 HR PATCH TRANSDERM SCH (09:15)
[2018-11-24] MEDS: PANTOPRAZOLE 40 MG TABLET PO SCH (09:15)
[2018-11-24] MEDS: CHLORHEXIDINE 0.12% ORAL RINSE 60 ML BOTTLE SWISH/SPIT SCH ×2 (09:15→20:50)
[2018-11-24] MEDS: CYANOCOBALAMIN 500 MCG TABLET PO SCH (09:15)
[2018-11-24] MEDS: tiZANidine 4 MG TABLET PO SCH (09:15)
[2018-11-24] MEDS: SILDENAFIL 20 MG TABLET PO SCH (09:15)
[2018-11-25] MEDS: hydrALAZINE 20 MG/1 ML VIAL IV SCH ×3 (01:06→14:23)
[2018-11-25] MEDS: LEVOTHYROXINE 112 MCG TABLET PO SCH (06:28)
[2018-11-25] MEDS: ALBUTEROL 2.5 MG/3 ML NEB RESP TX SCH (07:20)
[2018-11-25] MEDS: NICOTINE 14 MG/24 HR PATCH TRANSDERM SCH (09:33)
[2018-11-25] MEDS: CYANOCOBALAMIN 500 MCG TABLET PO SCH (09:34)
[2018-11-25] MEDS: FOLIC ACID 1 MG TABLET PO SCH (09:34)
[2018-11-25] MEDS: ERGOCALCIFEROL 50,000 UNIT CAPSULE PO SCH (09:34)
[2018-11-25] MEDS: GABAPENTIN 300 MG CAPSULE PO SCH (09:34)
[2018-11-25] MEDS: ATORVASTATIN 20 MG TABLET PO SCH (09:34)
[2018-11-25] MEDS: FERROUS SULFATE 325 MG TABLET PO SCH (09:34)
[2018-11-25] MEDS: PANTOPRAZOLE 40 MG TABLET PO SCH (09:34)
[2018-11-25] MEDS: ASPIRIN CHEW 81 MG TABLET PO SCH (09:34)
[2018-11-25] MEDS: AMIODARONE 200 MG TABLET PO SCH (09:34)
[2018-11-25] MEDS: CETIRIZINE 10 MG TABLET PO SCH (09:34)
[2018-11-25] MEDS: SILDENAFIL 20 MG TABLET PO SCH (09:35)
[2018-11-25] MEDS: CARVEDILOL 6.25 MG TABLET PO SCH (09:35)
[2018-11-25] MEDS: VERAPAMIL SR 240 MG TABLET PO SCH (09:35)
[2018-11-25] MEDS: DOCUSATE SODIUM 100 MG CAPSULE PO SCH (09:35)
[2018-11-25] MEDS: tiZANidine 4 MG TABLET PO SCH (09:35)
[2018-11-25] MEDS: CHLORHEXIDINE 0.12% ORAL RINSE 60 ML BOTTLE SWISH/SPIT SCH (09:39)
[2018-11-25] MEDS: MAGNESIUM HYDROXIDE SUSP 30 ML UDCUP PO PRN (11:30)
[2018-11-25 12:10] VITALS: BP 112/64
== END 2018-11-25 14:15 | disposition swing bed (61) | DRG 236 ==
LOC: N.ICU 13:43 → N.CVR 11-17 08:01 → N.ICU 11-18 07:03 → N.TELES 11-20 13:25